=== PATIENT | female | born 1945 | race Hispanic/Latino ===

== ENCOUNTER → 2017-06-14 | Outpatient (CLI) | payer OTHER ==
[~2017-06-14] VITALS: Ht 154.9 cm; Wt 71.2 kg
[~2017-06-14] MED LIST: REGADENOSON 0.4 MG/5 ML PF SYG IVP SCH
== END | disposition home or self-care (01) ==
LOC: SHCH 12:21
PROVIDERS: ATTEND Internal Medicine Cardiovascular Disease
DX: I10 Essential (primary) hypertension (principal); E78.5 Hyperlipidemia, unspecified
CPT/HCPCS: 78452; 93017; 96374; A9500 ×2; J2785

== ENCOUNTER → 2017-07-13 | Outpatient (CLI) | payer OTHER ==
[2017-07-13 10:22] LABS: AMYLASE 38 U/L (25-115); LIPASE 78 U/L (114-286)
== END | disposition home or self-care (01) ==
LOC: RAH 07:11
PROVIDERS: ATTEND Internal Medicine Gastroenterology
DX: K21.9 Gastro-esophageal reflux disease without esophagitis (principal); R11.0 Nausea
CPT/HCPCS: 36415; 74240; 76700; 82150; 83690

== ENCOUNTER → 2018-02-13 | Outpatient (CLI) | payer OTHER | END | disposition home or self-care (01) | LOC: SHCH 08:51 | PROVIDERS: ATTEND Internal Medicine Cardiovascular Disease | DX: I87.2 Venous insufficiency (chronic) (peripheral) (principal) | CPT/HCPCS: 93970 ==

== ENCOUNTER → 2018-04-29 | Outpatient (CLI) | payer OTHER | END | disposition home or self-care (01) | LOC: RAH 16:46 | PROVIDERS: ATTEND Internal Medicine Gastroenterology | DX: K59.04 Chronic idiopathic constipation (principal) | CPT/HCPCS: 74018 ==

== ENCOUNTER → 2018-05-09 | Outpatient (CLI) | payer OTHER | END | disposition home or self-care (01) | LOC: RAH 07:15 | PROVIDERS: ATTEND Family Medicine | DX: R10.9 Unspecified abdominal pain (principal) | CPT/HCPCS: 76700 ==

== ENCOUNTER → 2018-05-27 | Outpatient (CLI) | payer OTHER | END | disposition home or self-care (01) | LOC: SHCH 13:01 | PROVIDERS: ATTEND Internal Medicine Cardiovascular Disease | DX: Z09 Encounter for follow-up examination after completed treatment for conditions other than malignant neoplasm (principal) | CPT/HCPCS: 93971 ==

== ENCOUNTER → 2018-05-30 | Outpatient (CLI) | payer OTHER ==
[~2018-05-30] MED LIST changes: +IOHEXOL 350 MG/ML 100ML INFUS..BTL IV ONE; -REGADENOSON 0.4 MG/5 ML PF SYG IVP SCH
== END | disposition home or self-care (01) ==
LOC: RAH 09:47
PROVIDERS: ATTEND Internal Medicine Gastroenterology
DX: R10.84 Generalized abdominal pain (principal)
CPT/HCPCS: 74178; Q9967

== ENCOUNTER 2018-05-31 11:58 | Emergency (ER) | payer OTHER ==
[2018-05-31] MEDS ORDERED: OCTYL 2-CYANOACRYLATE 1 EACH TP ONE (12:12)
== END 2018-05-31 12:59 | disposition home or self-care (01) ==
LOC: EDH 11:58
DX: S82.091A Other fracture of right patella, initial encounter for closed fracture (principal); S60.519A Abrasion of unspecified hand, initial encounter; F41.9 Anxiety disorder, unspecified; I10 Essential (primary) hypertension; Z88.2 Allergy status to sulfonamides; Z88.1 Allergy status to other antibiotic agents; Z88.8 Allergy status to other drugs, medicaments and biological substances; W01.0XXA Fall on same level from slipping, tripping and stumbling without subsequent striking against object, initial encounter; Y93.01 Activity, walking, marching and hiking; Y92.89 Other specified places as the place of occurrence of the external cause; Y99.8 Other external cause status
CPT/HCPCS: 12001; 29505; 73562

== ENCOUNTER 2018-06-02 16:55 | Emergency (ER) | payer OTHER ==
[2018-06-02 17:21] LABS: APPEARANCE,URINE Clear (CLEAR); BILIRUBIN,URINE Negative (NEGATIVE); GLUCOSE, URINE (UA) Negative (NEGATIVE); KETONES,URINE Negative (NEGATIVE); LEUKOCYTE ESTERASE ,URINE Trace (NEGATIVE); NITRATE,URINE Positive (NEGATIVE); OCCULT BLOOD,URINE Negative (NEGATIVE); PROTEIN,URINE Negative (NEGATIVE)
[2018-06-02 17:32] LABS: BACTERIA,URINE Few /HPF (None Seen); RBC,URINE None Seen /HPF (0-1); WBC,URINE 0-1 /HPF (0-1)
[2018-06-02 17:33] LABS: COLOR,URINE Dark Yellow (YELLOW); SQUAMOUS EPITHELIAL CELL,UR 0-2 /HPF (0-2)
[2018-06-02 17:47] LABS: BASOPHILS % (AUTO) 1.1 % (0.0-5.0); EOSINOPHILS % (AUTO) 0.7 % (0.0-8.0); HEMATOCRIT 39.6 % (36-48); LYMPHOCYTES % (AUTO) 25.7 % (21.0-51.0); MEAN CORPUSCULAR HEMOGLOBIN 31.7 pg (27.0-33.0); MEAN CORPUSCULAR HGB CONC 33.6 g/dL (32.0-36.0); MEAN CORPUSCULAR VOLUME 94.3 fL (79-99); MONOCYTES % (AUTO) 4.9 % (3.0-13.0); NEUTROPHILS % (AUTO) 67.6 % (40.0-77.0); PLATELET COUNT (AUTO) 321 K/uL (130-400); RED CELL DISTRIBUTION WIDTH 12.7 % (11.0-15.5); WHITE BLOOD COUNT (AUTO) 10.7 K/uL (4.8-10.8)
[2018-06-02 18:03] LABS: CREATININE 0.8 mg/dL (0.5-1.5); POTASSIUM 4.1 mmol/L (3.5-5.1)
[2018-06-02 18:08] LABS: ALBUMIN 3.7 g/dL (3.5-5.0); BILIRUBIN,TOTAL 0.7 mg/dL (0.2-1.0); TOTAL PROTEIN, SERUM 7.2 g/dL (6.0-8.3)
== END 2018-06-02 18:33 | disposition home or self-care (01) ==
LOC: EDH 16:55
DX: N39.0 Urinary tract infection, site not specified (principal); I10 Essential (primary) hypertension; F41.9 Anxiety disorder, unspecified; Z98.890 Other specified postprocedural states; Z88.2 Allergy status to sulfonamides; Z88.1 Allergy status to other antibiotic agents; Z88.8 Allergy status to other drugs, medicaments and biological substances
CPT/HCPCS: 36415; 80053; 81001; 85025; 87088

== ENCOUNTER → 2018-07-16 | Outpatient (CLI) | payer OTHER ==
[~2018-07-16] MED LIST changes: -IOHEXOL 350 MG/ML 100ML INFUS..BTL IV ONE; +REGADENOSON 0.4 MG/5 ML PF SYG IVP ONE; +REGADENOSON 0.4 MG/5 ML PF SYG IVP SCH
== END | disposition home or self-care (01) ==
LOC: SHCH 08:40
PROVIDERS: ATTEND Internal Medicine Cardiovascular Disease
DX: I10 Essential (primary) hypertension (principal)
CPT/HCPCS: 78452; 93017; 96374; A9500 ×2; J2785

== ENCOUNTER → 2018-07-25 | Outpatient (CLI) | payer OTHER | END | disposition home or self-care (01) | LOC: SHCH 15:57 | PROVIDERS: ATTEND Internal Medicine Cardiovascular Disease | DX: I10 Essential (primary) hypertension (principal) | CPT/HCPCS: 93306 ==

== ENCOUNTER 2018-07-31 18:38 | Emergency (ER) | payer OTHER ==
[2018-07-31] MEDS ORDERED: LIDOCAINE 5% TOPICAL PATCH TP ONE (19:37)
[2018-07-31] MEDS ORDERED: KETOROLAC TROMETHAMINE 30MG/ML ONE (19:37)
== END 2018-07-31 20:45 | disposition home or self-care (01) ==
LOC: EDH 18:38
DX: S39.012A Strain of muscle, fascia and tendon of lower back, initial encounter (principal); S29.011A Strain of muscle and tendon of front wall of thorax, initial encounter; M62.838 Other muscle spasm; I10 Essential (primary) hypertension; F41.9 Anxiety disorder, unspecified; E11.9 Type 2 diabetes mellitus without complications; E78.5 Hyperlipidemia, unspecified; K21.9 Gastro-esophageal reflux disease without esophagitis; Z88.1 Allergy status to other antibiotic agents; Z88.2 Allergy status to sulfonamides; Z88.8 Allergy status to other drugs, medicaments and biological substances; V49.69XA Unspecified car occupant injured in collision with other motor vehicles in traffic accident, initial encounter; Y93.89 Activity, other specified; Y92.89 Other specified places as the place of occurrence of the external cause; Y99.8 Other external cause status
CPT/HCPCS: 71046; 72100; 93005; 96372; 99284; J1885

== ENCOUNTER 2018-09-19 12:41 | Emergency (ER) | payer OTHER ==
[2018-09-19 13:03] LABS: APPEARANCE,URINE Clear (CLEAR); BILIRUBIN,URINE Negative (NEGATIVE); COLOR,URINE Dark Yellow (YELLOW); GLUCOSE, URINE (UA) Negative (NEGATIVE); KETONES,URINE Negative (NEGATIVE); LEUKOCYTE ESTERASE ,URINE Negative (NEGATIVE); NITRATE,URINE Positive (NEGATIVE); OCCULT BLOOD,URINE Negative (NEGATIVE); PROTEIN,URINE Negative (NEGATIVE)
[2018-09-19 13:18] LABS: BACTERIA,URINE Few /HPF (None Seen); RBC,URINE 0-1 /HPF (0-1); WBC,URINE 0-1 /HPF (0-1)
[2018-09-19 14:44] LABS: BASOPHILS % (AUTO) 0.5 % (0.0-5.0); EOSINOPHILS % (AUTO) 0.8 % (0.0-8.0); HEMATOCRIT 42.6 % (36-48); LYMPHOCYTES % (AUTO) 27.2 % (21.0-51.0); MEAN CORPUSCULAR HEMOGLOBIN 31.7 pg (27.0-33.0); MEAN CORPUSCULAR HGB CONC 33.9 g/dL (32.0-36.0); MEAN CORPUSCULAR VOLUME 93.7 fL (79-99); MONOCYTES % (AUTO) 5.3 % (3.0-13.0); NEUTROPHILS % (AUTO) 66.2 % (40.0-77.0); PLATELET COUNT (AUTO) 259 K/uL (130-400); RED BLOOD CELL COUNT(AUTO) 4.54 MIL/uL (4.00-5.50); RED CELL DISTRIBUTION WIDTH 12.8 % (11.0-15.5); WHITE BLOOD COUNT (AUTO) 8.6 K/uL (4.8-10.8)
[2018-09-19 14:48] LABS: CREATININE 0.8 mg/dL (0.5-1.5); POTASSIUM 3.5 mmol/L (3.5-5.1)
[2018-09-19 14:53] LABS: ALBUMIN 3.9 g/dL (3.5-5.0); BILIRUBIN,TOTAL 0.8 mg/dL (0.2-1.0); TOTAL PROTEIN, SERUM 7.5 g/dL (6.0-8.3)
== END 2018-09-19 16:25 | disposition home or self-care (01) ==
LOC: EDH 12:41
DX: N39.0 Urinary tract infection, site not specified (principal); K21.9 Gastro-esophageal reflux disease without esophagitis; I10 Essential (primary) hypertension; F41.9 Anxiety disorder, unspecified; Z88.1 Allergy status to other antibiotic agents; Z88.2 Allergy status to sulfonamides; Z88.8 Allergy status to other drugs, medicaments and biological substances; Z90.710 Acquired absence of both cervix and uterus
CPT/HCPCS: 36415; 74176; 80053; 81001; 83690; 85025

== ENCOUNTER → 2019-01-16 | Outpatient (CLI) | payer OTHER | END | disposition home or self-care (01) | LOC: RAH 07:27 | PROVIDERS: ATTEND Family Medicine | DX: K76.0 Fatty (change of) liver, not elsewhere classified (principal); Z90.710 Acquired absence of both cervix and uterus | CPT/HCPCS: 76700; 76856 ==

== ENCOUNTER 2019-03-10 07:58 | Emergency (ER) | payer OTHER ==
[2019-03-10] MEDS ORDERED: SODIUM CHLORIDE 0.9% 500ML 500 ML IV ONE (08:39)
[2019-03-10 08:41] LABS: BASOPHILS % (AUTO) 0.6 % (0.0-5.0); EOSINOPHILS % (AUTO) 0.5 % (0.0-8.0); HEMATOCRIT 39.2 % (36-48); LYMPHOCYTES % (AUTO) 19.1 % (21.0-51.0); MEAN CORPUSCULAR HGB CONC 34.3 g/dL (32.0-36.0); MEAN CORPUSCULAR VOLUME 93.2 fL (79-99); MONOCYTES % (AUTO) 6.8 % (3.0-13.0); PLATELET COUNT (AUTO) 290 K/uL (130-400); RED BLOOD CELL COUNT(AUTO) 4.21 MIL/uL (4.00-5.50); RED CELL DISTRIBUTION WIDTH 13.1 % (11.0-15.5); WHITE BLOOD COUNT (AUTO) 8.5 K/uL (4.8-10.8)
[2019-03-10] MEDS ORDERED: ONDANSETRON HCL 4 MG/2 ML VIAL ONE (08:42)
[2019-03-10 08:50] LABS: CREATININE 0.8 mg/dL (0.5-1.5); POTASSIUM 3.5 mmol/L (3.5-5.1)
[2019-03-10 08:53] LABS: INR 0.98 (0.85-1.15); PARTIAL THROMBOPLASTIN TIME 26.2 SEC (26.3-35.5); PROTHROMBIN TIME 10.3 SEC (9.6-11.6)
[2019-03-10 08:55] LABS: ALBUMIN 3.8 g/dL (3.5-5.0); BILIRUBIN,TOTAL 1.2 mg/dL (0.2-1.0); TOTAL PROTEIN, SERUM 6.8 g/dL (6.0-8.3)
[2019-03-10 09:31] LABS: B-TYPE NATRIURETIC PEPTIDE 18 pg/mL (0-100)
[2019-03-10 10:17] LABS: APPEARANCE,URINE Cloudy (CLEAR); BILIRUBIN,URINE Negative (NEGATIVE); COLOR,URINE Yellow (YELLOW); GLUCOSE, URINE (UA) Negative (NEGATIVE); KETONES,URINE Negative (NEGATIVE); LEUKOCYTE ESTERASE ,URINE Negative (NEGATIVE); NITRATE,URINE Negative (NEGATIVE); OCCULT BLOOD,URINE Negative (NEGATIVE); PROTEIN,URINE Negative (NEGATIVE); UROBILINOGEN,URINE 0.2 mg/dL (0.2-1.0)
[2019-03-10 10:35] LABS: BACTERIA,URINE Few /HPF (None Seen); RBC,URINE 0-1 /HPF (0-1); SQUAMOUS EPITHELIAL CELL,UR Few /HPF (0-2); WBC,URINE 0-1 /HPF (0-1)
== END 2019-03-10 12:06 | disposition home or self-care (01) ==
LOC: EDH 07:58
DX: R07.89 Other chest pain (principal); R53.1 Weakness; R11.2 Nausea with vomiting, unspecified; R10.13 Epigastric pain; F41.9 Anxiety disorder, unspecified; I10 Essential (primary) hypertension; K21.9 Gastro-esophageal reflux disease without esophagitis; Z90.710 Acquired absence of both cervix and uterus; Z88.8 Allergy status to other drugs, medicaments and biological substances; Z88.1 Allergy status to other antibiotic agents
CPT/HCPCS: 36415; 71045; 80053; 81001; 82550; 83880; 84484; 85025; 85610; 85730; 87804 ×2; 93005; 96361; 96374; 99284; J2405; J7040

== ENCOUNTER → 2019-04-22 | Outpatient (CLI) | payer OTHER ==
[~2019-04-22] VITALS: Ht 152.4 cm; Wt 71.7 kg
[~2019-04-22] MED LIST changes: +ASPI-555 PO; +ESOM40CA PO; +MIRT30TA6 PO; -REGADENOSON 0.4 MG/5 ML PF SYG IVP ONE; -REGADENOSON 0.4 MG/5 ML PF SYG IVP SCH
[2019-04-22 11:46] LABS: BASOPHILS % (AUTO) 0.5 % (0.0-5.0); EOSINOPHILS % (AUTO) 0.9 % (0.0-8.0); HEMATOCRIT 40.8 % (36-48); LYMPHOCYTES % (AUTO) 20.2 % (21.0-51.0); MEAN CORPUSCULAR HEMOGLOBIN 31.5 pg (27.0-33.0); MEAN CORPUSCULAR HGB CONC 33.3 g/dL (32.0-36.0); MEAN CORPUSCULAR VOLUME 94.4 fL (79-99); MONOCYTES % (AUTO) 5.6 % (3.0-13.0); NEUTROPHILS % (AUTO) 72.1 % (40.0-77.0); PLATELET COUNT (AUTO) 311 K/uL (130-400); RED BLOOD CELL COUNT(AUTO) 4.32 MIL/uL (4.00-5.50); RED CELL DISTRIBUTION WIDTH 13.1 % (11.0-15.5); WHITE BLOOD COUNT (AUTO) 12.5 K/uL (4.8-10.8)
[2019-04-22 11:52] LABS: CREATININE 0.8 mg/dL (0.5-1.5); POTASSIUM 3.9 mmol/L (3.5-5.1)
[2019-04-22 12:06] VITALS: BP 156/79
--- NOTE | 2019-04-22 15:22 | NUR ---
ABNORMAL LABS CALLED DR. MCCORMICK'S OFFICE, REPORTED PT'S WBC IS 12.5. NO FURTHER ORDERS PER DR. MCCORMICK, MAY PROCEED WITH PLANNED PROCEDURE.
== END | disposition home or self-care (01) ==
LOC: DAH 10:00 → EDSTATUS 04-23 13:00
PROVIDERS: ATTEND Obstetrics & Gynecology
DX: N39.3 Stress incontinence (female) (male) (principal)
CPT/HCPCS: 36415; 80048; 85025; 93005

== ENCOUNTER → 2020-01-05 | Outpatient (CLI) | payer OTHER ==
[~2020-01-05] MED LIST changes: -ASPI-555 PO; +ASPI-556 PO
== END | disposition home or self-care (01) ==
LOC: OIH 15:56
PROVIDERS: ATTEND Internal Medicine Gastroenterology
DX: K59.04 Chronic idiopathic constipation (principal)
CPT/HCPCS: 74018

== ENCOUNTER → 2020-04-06 | Outpatient (CLI) | payer MEDICARE, OTHER ==
[~2020-04-06] MED LIST changes: +IOHEXOL-350 50ML VIAL IV ONE
== END | disposition home or self-care (01) ==
LOC: RAH 08:46
PROVIDERS: ATTEND Internal Medicine Gastroenterology
DX: R10.84 Generalized abdominal pain (principal)
CPT/HCPCS: 74178; Q9967

== ENCOUNTER 2020-09-16 13:54 | Emergency (ER) | payer MEDICARE ==
[~2020-09-16] VITALS: Ht 154.9 cm; Wt 68.9 kg
[~2020-09-16 13:54] MED LIST changes: -IOHEXOL-350 50ML VIAL IV ONE; +MIRT-93 PO; -MIRT30TA6 PO
[2020-09-16 13:57] VITALS: BP 146/64
[2020-09-16] MEDS ORDERED: FAMOTIDINE 20MG TAB PO ONE (14:45)
[2020-09-16] MEDS ORDERED: LACTATED RINGERS 1000ML 1,000 ML IV ONE (14:45)
[2020-09-16] MEDS ORDERED: ONDANSETRON 4MG INJ IVP ONE (14:45)
[2020-09-16] MEDS ORDERED: KETOROLAC 30MG VIAL (30MG/ML) ONE (14:57)
[2020-09-16 15:01] VITALS: BP 146/64
[2020-09-16 15:08] LABS: BASOPHILS % (AUTO) 0.5 % (0.0-5.0); EOSINOPHILS % (AUTO) 1.2 % (0.0-8.0); HEMATOCRIT 40.2 % (36-48); LYMPHOCYTES % (AUTO) 24.4 % (21.0-51.0); MEAN CORPUSCULAR HEMOGLOBIN 30.5 pg (27.0-33.0); MEAN CORPUSCULAR HGB CONC 32.6 g/dL (32.0-36.0); MEAN CORPUSCULAR VOLUME 93.5 fL (79-99); MONOCYTES % (AUTO) 5.7 % (3.0-13.0); NEUTROPHILS % (AUTO) 67.7 % (40.0-77.0); PLATELET COUNT (AUTO) 305 K/uL (130-400); RED CELL DISTRIBUTION WIDTH 12.6 % (11.0-15.5); WHITE BLOOD COUNT (AUTO) 8.6 K/uL (4.8-10.8)
[2020-09-16 15:19] LABS: CARBON DIOXIDE 33 mmol/L (21-32); CHLORIDE 103 mmol/L (101-111); CREATININE 0.8 mg/dL (0.5-1.5); GLOMERULAR FILTR. RATE CALC 75 mL/min (>60); GLUCOSE,RANDOM 165 mg/dL (70-105); POTASSIUM 3.7 mmol/L (3.5-5.1); SODIUM SERUM 144 mmol/L (136-145); UREA NITROGEN, BLOOD 21 mg/dL (7-18)
[2020-09-16 15:20] LABS: INR 0.98 (0.85-1.15); PROTHROMBIN TIME 10.7 SEC (9.6-11.6)
[2020-09-16] MEDS ORDERED: IOHEXOL-350 75 ML VIAL IV ONE (15:23)
[2020-09-16 15:26] LABS: APPEARANCE,URINE Clear (CLEAR); BILIRUBIN,URINE Negative (NEGATIVE); COLOR,URINE Yellow (YELLOW); GLUCOSE, URINE (UA) Negative (NEGATIVE); KETONES,URINE Negative (NEGATIVE); LEUKOCYTE ESTERASE ,URINE Negative (NEGATIVE); NITRATE,URINE Negative (NEGATIVE); OCCULT BLOOD,URINE Negative (NEGATIVE); PROTEIN,URINE Negative (NEGATIVE); UROBILINOGEN,URINE 0.2 mg/dL (0.2-1.0)
[2020-09-16 15:29] LABS: B-TYPE NATRIURETIC PEPTIDE 45 pg/mL (0-100)
[2020-09-16 15:30] LABS: ALANINE AMINOTRANSFERASE 26 U/L (12-78); ALBUMIN 3.8 g/dL (3.5-5.0); AMYLASE 46 U/L (25-115); ASPARTATE AMINOTRANSFERASE 13 U/L (10-37); BILIRUBIN,TOTAL 0.4 mg/dL (0.2-1.0); CREATINE KINASE, TOTAL 65 U/L (21-232); LIPASE 57 U/L (114-286); MYOGLOBIN 38 ng/mL (10-92); TOTAL PROTEIN, SERUM 7.5 g/dL (6.0-8.3); TROPONIN I < 0.04 ng/mL (0.00-0.06)
[2020-09-16] MEDS: KETOROLAC 30MG VIAL (30MG/ML) ONE ×2 (15:57→16:02)
[2020-09-16] MEDS ORDERED: METRONIDAZOLE 500MG/100ML BAG 100 ML ONE (16:35)
[2020-09-16] MEDS ORDERED: ZOSYN 3.375GM+NS 50ML 50 ML IV ONE (16:35)
[2020-09-16] MEDS ORDERED: 0.9% NACL 50ML 50 ML IV ONE (16:38)
[2020-09-16] MEDS ORDERED: HYDROMORPHONE 1 MG INJ ONE (16:51)
[2020-09-16 16:57] VITALS: BP 138/62
[2020-09-16 18:08] VITALS: BP 138/62
== END 2020-09-16 18:17 | disposition home or self-care (01) ==
LOC: EDH 13:54
DX: K76.89 Other specified diseases of liver (principal); F32.9 Major depressive disorder, single episode, unspecified; F41.9 Anxiety disorder, unspecified; E86.0 Dehydration; R10.12 Left upper quadrant pain; Z88.0 Allergy status to penicillin; Z88.2 Allergy status to sulfonamides; Z88.8 Allergy status to other drugs, medicaments and biological substances; Z79.82 Long term (current) use of aspirin; Z79.899 Other long term (current) drug therapy
CPT/HCPCS: 36415; 80053; 81003; 82150; 82550; 83690; 83874; 83880; 84484; 85025; 85610; 93005; 96361; 96374; 96375; 99285; J1170; J1885; J2405; J2543; J3490; J7120; 74177; Q9967

== ENCOUNTER → 2021-03-24 | Outpatient (CLI) | payer MEDICARE ==
[~2021-03-24] MED LIST changes: +IOHEXOL-350 50ML VIAL IV ONE
== END | disposition home or self-care (01) ==
LOC: RAH 08:29
PROVIDERS: ATTEND Internal Medicine Gastroenterology
DX: R10.12 Left upper quadrant pain (principal); R93.3 Abnormal findings on diagnostic imaging of other parts of digestive tract; Q44.6 Cystic disease of liver; M47.815 Spondylosis without myelopathy or radiculopathy, thoracolumbar region
CPT/HCPCS: 74178; Q9967

== ENCOUNTER → 2021-05-02 | Outpatient (CLI) | payer MEDICARE ==
[~2021-05-02] MED LIST changes: -IOHEXOL-350 50ML VIAL IV ONE
== END | disposition home or self-care (01) ==
LOC: RAH 10:25
PROVIDERS: ATTEND Internal Medicine Gastroenterology
DX: K30 Functional dyspepsia (principal)
CPT/HCPCS: 78264; A9541

== ENCOUNTER 2021-05-15 09:40 | Emergency (ER) | payer MEDICARE ==
[~2021-05-15] VITALS: Ht 154.9 cm; Wt 52.2 kg
[2021-05-15 10:45] LABS: APPEARANCE,URINE Clear (CLEAR); BILIRUBIN,URINE Small (NEGATIVE); COLOR,URINE Dark Yellow (YELLOW); GLUCOSE, URINE (UA) >=1000 mg/dL (NEGATIVE); KETONES,URINE Trace mg/dL (NEGATIVE); LEUKOCYTE ESTERASE ,URINE Negative (NEGATIVE); NITRATE,URINE Positive (NEGATIVE); OCCULT BLOOD,URINE Negative (NEGATIVE); PH,URINE 5.5 (5.0-8.0); PROTEIN,URINE Negative (NEGATIVE)
[2021-05-15] MEDS ORDERED: KETOROLAC 15MG/ML VIAL (15MG/ML) IM SCH (10:52)
[2021-05-15] MEDS ORDERED: PHARMACY COMMUNICATION MISC SCH (11:00)
[2021-05-15] MEDS ORDERED: CEPHALEXIN 500 MG CAPSULE PO SCH (11:00)
[2021-05-15 11:26] LABS: BACTERIA,URINE Few /HPF (None Seen); RBC,URINE 0-1 /HPF (0-1); SQUAMOUS EPITHELIAL CELL,UR 30-50 /HPF (0-2)
[2021-05-15] MEDS ORDERED: ACET1TAB25 PO (11:27)
[2021-05-15] MEDS ORDERED: CEPH500B PO (11:27)
[2021-05-15 11:54] VITALS: BP 128/69
== END 2021-05-15 11:56 | disposition home or self-care (01) ==
LOC: EDH 09:40
DX: M54.32 Sciatica, left side (principal); N39.0 Urinary tract infection, site not specified; I11.0 Hypertensive heart disease with heart failure; E11.9 Type 2 diabetes mellitus without complications; Z90.710 Acquired absence of both cervix and uterus; Z98.890 Other specified postprocedural states; Z79.82 Long term (current) use of aspirin; Z79.899 Other long term (current) drug therapy; Z88.1 Allergy status to other antibiotic agents; Z88.2 Allergy status to sulfonamides; Z88.8 Allergy status to other drugs, medicaments and biological substances
CPT/HCPCS: 72100; 81001; 87088; 96372; 99284; J1885

== ENCOUNTER 2021-05-22 09:48 | Observation (INO) | payer MEDICARE ==
[~2021-05-22] VITALS: Ht 149.9 cm; Wt 66.7 kg
[~2021-05-22 09:48] MED LIST changes: +ACET1TAB25 PO; +CEPH500B PO
[2021-05-22] MEDS ORDERED: HYDROCODONE/ACETAMINOPHEN 5/325 MG TAB PO SCH (11:30)
[2021-05-22 13:31] LABS: BASOPHILS % (AUTO) 0.3 % (0.0-5.0); EOSINOPHILS % (AUTO) 0.8 % (0.0-8.0); HEMATOCRIT 42.4 % (36-48); LYMPHOCYTES % (AUTO) 27.7 % (21.0-51.0); MEAN CORPUSCULAR HEMOGLOBIN 30.7 pg (27.0-33.0); MEAN CORPUSCULAR HGB CONC 33.3 g/dL (32.0-36.0); MEAN CORPUSCULAR VOLUME 92.2 fL (79-99); MONOCYTES % (AUTO) 5.8 % (3.0-13.0); NEUTROPHILS % (AUTO) 65.2 % (40.0-77.0); PLATELET COUNT (AUTO) 302 K/uL (130-400); WHITE BLOOD COUNT (AUTO) 9.4 K/uL (4.8-10.8)
[2021-05-22 13:43] LABS: CREATININE 0.8 mg/dL (0.5-1.5); POTASSIUM 3.2 mmol/L (3.5-5.1)
[2021-05-22 13:47] LABS: BILIRUBIN,TOTAL 0.7 mg/dL (0.2-1.0); TOTAL PROTEIN, SERUM 7.6 g/dL (6.0-8.3)
[2021-05-22] MEDS ORDERED: ALBUTEROL 0.083% 2.5 MG/3 ML INH IH PRN (16:30)
[2021-05-22] MEDS ORDERED: ONDANSETRON 4MG INJ IVP PRN (16:30)
[2021-05-22] MEDS ORDERED: HYDRALAZINE 20MG/ML VIAL IV PRN (16:30)
[2021-05-22] MEDS ORDERED: LABETALOL 20MG SYG IV PRN (16:30)
[2021-05-22] MEDS ORDERED: LORA-868 PO (17:14)
[2021-05-22] MEDS ORDERED: LACT10SO5 PO (17:14)
[2021-05-22] MEDS ORDERED: NABU-141 PO (17:14)
[2021-05-22] MEDS ORDERED: ALPR1TAB7 PO (17:14)
[2021-05-22] MEDS ORDERED: FAMO40TA7 PO (17:14)
[2021-05-22] MEDS ORDERED: HYDR25TA PO (17:14)
[2021-05-22] MEDS ORDERED: MIRT45TA83 PO (17:14)
[2021-05-22] MEDS ORDERED: DICY20TA3 PO (17:14)
[2021-05-22] MEDS: INSULIN HUMULIN R 100 UNIT/ML 3ML SQ SCH ×2 (17:17→20:58)
[2021-05-22] MEDS: LACTULOSE 20 GM/30 ML UDCUP PO SCH (20:41)
[2021-05-22 21:45] VITALS: BP 122/71
[2021-05-22] MEDS ORDERED: INSU100I24 SQ (22:18)
[2021-05-22] MEDS ORDERED: ONDA4TAB10 PO (22:22)
[2021-05-22] MEDS ORDERED: HYDROMORPHONE 0.5 MG SYG (0.5MG/0.5ML) ONE (22:39)
[2021-05-22] MEDS ORDERED: **HM**(Nabumetone 500 MG PO PRN (23:00)
[2021-05-22] MEDS ORDERED: HYDROMORPHONE 0.5 MG SYG (0.5MG/0.5ML) IVP ONE (23:00)
[2021-05-22] MEDS ORDERED: DICYCLOMINE HCL 20 MG TAB PO PRN (23:00)
[2021-05-22] MEDS ORDERED: ALPRAZOLAM 1 MG TAB PO PRN (23:00)
[2021-05-22 23:30] VITALS: BP 114/69
[2021-05-23] MEDS: HYDROCODONE/ACETAMINOPHEN 5/325 MG TAB PO PRN ×4 (00:44→18:36)
[2021-05-23 03:20] VITALS: BP 112/63
[2021-05-23] MEDS ORDERED: HYDROMORPHONE 1 MG INJ ONE (05:17)
[2021-05-23 05:25] LABS: BASOPHILS % (AUTO) 0.7 % (0.0-5.0); EOSINOPHILS % (AUTO) 2.5 % (0.0-8.0); HEMATOCRIT 39.3 % (36-48); LYMPHOCYTES % (AUTO) 42.4 % (21.0-51.0); MEAN CORPUSCULAR HEMOGLOBIN 30.9 pg (27.0-33.0); MEAN CORPUSCULAR HGB CONC 32.6 g/dL (32.0-36.0); MEAN CORPUSCULAR VOLUME 94.9 fL (79-99); MONOCYTES % (AUTO) 6.9 % (3.0-13.0); NEUTROPHILS % (AUTO) 47.3 % (40.0-77.0); PLATELET COUNT (AUTO) 270 K/uL (130-400); RED BLOOD CELL COUNT(AUTO) 4.14 MIL/uL (4.00-5.50); RED CELL DISTRIBUTION WIDTH 12.1 % (11.0-15.5); WHITE BLOOD COUNT (AUTO) 8.9 K/uL (4.8-10.8)
[2021-05-23] MEDS ORDERED: HYDROMORPHONE 1 MG INJ IVP ONE (05:30)
[2021-05-23 05:39] LABS: CREATININE 0.9 mg/dL (0.5-1.5); MAGNESIUM 1.9 mg/dL (1.80-2.40); PHOSPHORUS 3.9 mg/dL (2.5-4.9); POTASSIUM 3.2 mmol/L (3.5-5.1)
[2021-05-23] MEDS: INSULIN HUMULIN R 100 UNIT/ML 3ML SQ SCH ×4 (06:32→20:08)
[2021-05-23] MEDS ORDERED: POTASSIUM CHLORIDE 10% ELIXIR 20 MEQ/15 ML UDCUP PO PRN (07:00)
[2021-05-23] MEDS ORDERED: POTASSIUM CHLORIDE 20MEQ/100ML 100 ML IV PRN (07:00)
[2021-05-23 08:00] VITALS: BP 113/65
[2021-05-23] MEDS ORDERED: ASPIRIN 81 MG EC TAB PO SCH (09:00)
[2021-05-23] MEDS: HYDROCHLOROTHIAZIDE 25 MG TABLET PO SCH (09:00)
[2021-05-23] MEDS: LORATADINE/PSEUDOEPHED 5/120 MG 1 EACH TAB.SR.12H PO SCH ×2 (09:00→19:58)
[2021-05-23] MEDS ORDERED: HYDROCHLOROTHIAZIDE 25 MG TABLET PO SCH (09:00)
[2021-05-23] MEDS ORDERED: ENOXAPARIN SODIUM 30 MG/0.3 ML SQ SCH (09:00)
[2021-05-23] MEDS: LACTULOSE 20 GM/30 ML UDCUP PO SCH ×2 (09:20→19:59)
[2021-05-23] MEDS: PANTOPRAZOLE 40 MG TAB DR PO SCH (09:20)
[2021-05-23 12:00] VITALS: BP 111/76
[2021-05-23] MEDS: KCL 20 MEQ ERTAB PO PRN ×3 (13:50→18:35)
[2021-05-23 16:00] VITALS: BP 134/79
[2021-05-23 20:00] VITALS: BP 121/73
[2021-05-23] MEDS: MIRTAZAPINE 15 MG TABLET PO SCH (21:00)
[2021-05-24] VITALS (7 sets, daily range): BP systolic 117–139; BP diastolic 68–78
[2021-05-24] MEDS ORDERED: SOLU-MEDROL 125MG VIAL IVP ONE (00:30)
[2021-05-24] MEDS: HYDROCODONE/ACETAMINOPHEN 5/325 MG TAB PO PRN ×4 (03:42→22:43)
[2021-05-24 05:16] LABS: RED BLOOD CELL COUNT(AUTO) 4.31 MIL/uL (4.00-5.50); WHITE BLOOD COUNT (AUTO) 8.3 K/uL (4.8-10.8)
[2021-05-24 05:17] LABS: BASOPHILS % (AUTO) 0.4 % (0.0-5.0); EOSINOPHILS % (AUTO) 0.2 % (0.0-8.0); HEMATOCRIT 40.1 % (36-48); LYMPHOCYTES % (AUTO) 9.2 % (21.0-51.0); MEAN CORPUSCULAR HEMOGLOBIN 30.2 pg (27.0-33.0); MEAN CORPUSCULAR HGB CONC 32.4 g/dL (32.0-36.0); MONOCYTES % (AUTO) 1.4 % (3.0-13.0); NEUTROPHILS % (AUTO) 88.3 % (40.0-77.0); PLATELET COUNT (AUTO) 239 K/uL (130-400); RED CELL DISTRIBUTION WIDTH 11.9 % (11.0-15.5)
[2021-05-24 05:32] LABS: MAGNESIUM 1.8 mg/dL (1.80-2.40); POTASSIUM 4.2 mmol/L (3.5-5.1)
[2021-05-24] MEDS: CYCLOBENZAPRINE HCL 10 MG TABLET PO PRN ×2 (05:48→12:19)
[2021-05-24] MEDS ORDERED: MAGNESIUM 2GM PREMIX 50ML 50 ML IV PRN (06:00)
[2021-05-24] MEDS: INSULIN HUMULIN R 100 UNIT/ML 3ML SQ SCH ×4 (06:12→20:02)
[2021-05-24] MEDS: LORATADINE/PSEUDOEPHED 5/120 MG 1 EACH TAB.SR.12H PO SCH ×2 (09:00→19:45)
[2021-05-24] MEDS: LACTULOSE 20 GM/30 ML UDCUP PO SCH ×2 (09:00→20:08)
[2021-05-24] MEDS: HYDROCHLOROTHIAZIDE 25 MG TABLET PO SCH (09:00)
[2021-05-24] MEDS: PREDNISONE 20 MG TABLET PO SCH ×2 (09:35→19:51)
[2021-05-24] MEDS: PANTOPRAZOLE 40 MG TAB DR PO SCH (09:35)
[2021-05-24] MEDS: MIRTAZAPINE 15 MG TABLET PO SCH (19:45)
[2021-05-24] MEDS ORDERED: CYCLOBENZAPRINE HCL 10 MG TABLET ONE (19:49)
[2021-05-24] MEDS ORDERED: CYCLOBENZAPRINE HCL 10 MG TABLET PO ONE (21:00)
[2021-05-24 21:34] LABS: APPEARANCE,URINE CLEAR (CLEAR); BILIRUBIN,URINE NEGATIVE (NEGATIVE); COLOR,URINE YELLOW (YELLOW); GLUCOSE, URINE (UA) >=1000 mg/dL (NEGATIVE); KETONES,URINE NEGATIVE (NEGATIVE); LEUKOCYTE ESTERASE ,URINE NEGATIVE (NEGATIVE); NITRATE,URINE NEGATIVE (NEGATIVE); OCCULT BLOOD,URINE NEGATIVE (NEGATIVE); PROTEIN,URINE NEGATIVE (NEGATIVE); UROBILINOGEN,URINE 0.2 mg/dL (0.2-1.0)
[2021-05-24 21:47] LABS: BACTERIA,URINE Rare /HPF (None Seen); RBC,URINE 0-1 /HPF (0-1); SQUAMOUS EPITHELIAL CELL,UR Few /HPF (0-2); WBC,URINE 0-1 /HPF (0-1)
[2021-05-25 04:42] VITALS: BP 128/75
[2021-05-25 05:14] LABS: HEMATOCRIT 37.6 % (36-48); MEAN CORPUSCULAR HEMOGLOBIN 31.4 pg (27.0-33.0); MEAN CORPUSCULAR VOLUME 92.4 fL (79-99); RED BLOOD CELL COUNT(AUTO) 4.07 MIL/uL (4.00-5.50); RED CELL DISTRIBUTION WIDTH 11.9 % (11.0-15.5); WHITE BLOOD COUNT (AUTO) 12.7 K/uL (4.8-10.8)
[2021-05-25 05:26] LABS: CREATININE 0.9 mg/dL (0.5-1.5); MAGNESIUM 2.1 mg/dL (1.80-2.40); PHOSPHORUS 4.1 mg/dL (2.5-4.9); POTASSIUM 4.6 mmol/L (3.5-5.1)
[2021-05-25] MEDS: INSULIN HUMULIN R 100 UNIT/ML 3ML SQ SCH ×2 (06:12→11:55)
[2021-05-25 07:15] VITALS: BP 126/74
[2021-05-25] MEDS ORDERED: MAGNESIUM CITRATE 296 ML SOLUTION PO SCH (08:00)
[2021-05-25] MEDS: LORATADINE/PSEUDOEPHED 5/120 MG 1 EACH TAB.SR.12H PO SCH (08:14)
[2021-05-25] MEDS: HYDROCHLOROTHIAZIDE 25 MG TABLET PO SCH (08:15)
[2021-05-25] MEDS: PANTOPRAZOLE 40 MG TAB DR PO SCH (08:15)
[2021-05-25] MEDS: LACTULOSE 20 GM/30 ML UDCUP PO SCH (08:27)
[2021-05-25] MEDS: PREDNISONE 20 MG TABLET PO SCH (08:28)
[2021-05-25] MEDS: HYDROCODONE/ACETAMINOPHEN 5/325 MG TAB PO PRN (08:30)
[2021-05-25] MEDS ORDERED: POLYETHYLENE GLYCOL 3350 17 GM POWD.PACK PO SCH (09:00)
[2021-05-25] MEDS ORDERED: CYCLOBENZAPRINE HCL 10 MG TABLET PO SCH (09:00)
[2021-05-25 11:20] VITALS: BP 119/71
== END 2021-05-25 17:45 ==
LOC: EDH 09:48 → EDHIP 16:28 → 3BH 20:46
PROVIDERS: ADMIT Internal Medicine Critical Care Medicine; ATTEND Internal Medicine Critical Care Medicine
DX: M48.07 Spinal stenosis, lumbosacral region (principal); Z20.822 Contact with and (suspected) exposure to COVID-19; M54.17 Radiculopathy, lumbosacral region; E87.6 Hypokalemia; E11.9 Type 2 diabetes mellitus without complications; I10 Essential (primary) hypertension; K59.00 Constipation, unspecified; F41.9 Anxiety disorder, unspecified; E66.9 Obesity, unspecified; I25.10 Atherosclerotic heart disease of native coronary artery without angina pectoris; Z90.710 Acquired absence of both cervix and uterus; Z88.0 Allergy status to penicillin; Z79.82 Long term (current) use of aspirin; Z79.4 Long term (current) use of insulin
CPT/HCPCS: 36415 ×4; 72131; 72148; 80048 ×3; 80053; 81001; 82948 ×11; 83735 ×3; 84100 ×2; 85025 ×3; 85027; 85730; 87635; 96365; 96366; 96372; 96375 ×3; 97116 ×2; 97161; 99284; C9803; G0378 ×72; J1170 ×2; J1650; J1815 ×10; J2405; J2930; J3475

== ENCOUNTER 2022-01-16 09:00 | Observation (INO) | payer MEDICARE ==
[~2022-01-16] VITALS: Ht 154.9 cm; Wt 68.9 kg
[~2022-01-16 09:00] MED LIST changes: -ACET1TAB25 PO; +ALPR1TAB7 PO; -CEPH500B PO; +FAMO40TA7 PO; +HYDR25TA PO; +INSU100I24 SQ; +LACT10SO5 PO; -MIRT-93 PO; +MIRT45TA83 PO
[2022-01-16 10:53] LABS: BASOPHILS % (AUTO) 0.5 % (0.0-5.0); EOSINOPHILS % (AUTO) 1.2 % (0.0-8.0); HEMATOCRIT 37.1 % (36-48); LYMPHOCYTES % (AUTO) 23.8 % (21.0-51.0); MEAN CORPUSCULAR HEMOGLOBIN 31.2 pg (27.0-33.0); MEAN CORPUSCULAR HGB CONC 33.2 g/dL (32.0-36.0); MEAN CORPUSCULAR VOLUME 94.2 fL (79-99); MONOCYTES % (AUTO) 5.1 % (3.0-13.0); PLATELET COUNT (AUTO) 268 K/uL (130-400); RED BLOOD CELL COUNT(AUTO) 3.94 MIL/uL (4.00-5.50); RED CELL DISTRIBUTION WIDTH 12.1 % (11.0-15.5); WHITE BLOOD COUNT (AUTO) 10.8 K/uL (4.8-10.8)
[2022-01-16 11:00] LABS: POTASSIUM 3.2 mmol/L (3.5-5.1)
[2022-01-16] MEDS ORDERED: CLINDAMYCIN IVPB 900MG/50ML 50 ML IV SCH (12:30)
[2022-01-16 13:09] VITALS: BP 132/68
[2022-01-16] MEDS ORDERED: LORA10TA7 PO (13:56)
[2022-01-16] MEDS ORDERED: DICY20TA3 PO (13:59)
[2022-01-16] MEDS ORDERED: PREG75 PO (13:59)
[2022-01-17] VITALS (25 sets, daily range): BP systolic 98–132; BP diastolic 52–76
[2022-01-17] MEDS ORDERED: BUPIVACAINE/EPI/PF 0.25% 10ML VIAL IJ ONE (05:05)
[2022-01-17] MEDS ORDERED: CEFAZOLIN SODIUM 1 GM VIAL ONE (05:05)
[2022-01-17] MEDS ORDERED: BUPIVACAINE/EPI/PF 0.5% 30ML VIAL IJ ONE (05:06)
[2022-01-17] MEDS ORDERED: MORPHINE PF 100MG/10ML AMP IV ONE (05:06)
[2022-01-17] MEDS ORDERED: THROMBIN-JMI 5000 UNIT/VIAL TP ONE (05:07)
[2022-01-17] MEDS ORDERED: DEXMEDETOMIDINE HCL 200 MCG/2 ML VIAL IV ONE (05:29)
[2022-01-17] MEDS ORDERED: 0.9%NACL 1000ML 1,000 ML IV ONE (06:23)
[2022-01-17 06:32] LABS: POTASSIUM 3.2 mmol/L (3.5-5.1)
[2022-01-17] MEDS ORDERED: ONDANSETRON 4MG INJ ONE (07:13)
[2022-01-17] MEDS ORDERED: PROPOFOL 10 MG/ML 20ML VIAL IV ONE ×2 (07:13→10:16)
[2022-01-17] MEDS ORDERED: MIDAZOLAM HCL 1 MG/ML 2ML VIAL ONE (07:13)
[2022-01-17] MEDS ORDERED: SUCCINYLCHOLINE CHLORIDE 20 MG/ML 10 ML VIAL ONE (07:13)
[2022-01-17] MEDS ORDERED: ROCURONIUM 10MG/1ML SYR 10 MG/ML ML ONE ×2 (07:13→08:42)
[2022-01-17] MEDS ORDERED: FENTANYL CITRATE PF 50 MCG/1 ML 5ML AMP IV ONE (07:14)
[2022-01-17] MEDS ORDERED: THROMBIN-JMI 20000 UNIT KIT TP ONE (08:00)
[2022-01-17] MEDS ORDERED: DEXAMETHASONE SOD PHOSPHATE 4 MG/ML 1ML VIAL ONE (08:40)
[2022-01-17] MEDS ORDERED: PHENYLEPHRINE HCL 10 MG/ML 1ML VIAL IV ONE (08:41)
[2022-01-17] MEDS ORDERED: GLYCOPYRROLATE 1 MG/5 ML SYRINGE ONE ×2 (08:42→10:12)
[2022-01-17] MEDS ORDERED: NEOSTIGMINE 5MG/5ML SYR IV ONE (10:12)
[2022-01-17] MEDS: CLINDAMYCIN IVPB 900MG/50ML 50 ML IV SCH ×2 (10:30→18:34)
[2022-01-17] MEDS ORDERED: 0.9%NACL 10ML VIAL IVP PRN (10:30)
[2022-01-17] MEDS ORDERED: DICYCLOMINE HCL 20 MG TAB PO PRN (10:30)
[2022-01-17] MEDS ORDERED: PROMETHAZINE HCL 25 MG/ML 1ML AMPULE IM PRN (10:30)
[2022-01-17] MEDS ORDERED: MORPHINE 2 MG SYG IVP PRN (10:30)
[2022-01-17] MEDS ORDERED: HYDROCODONE/ACETAMINOPHEN 5/325 MG TAB PO PRN (10:30)
[2022-01-17] MEDS ORDERED: LACTATED RINGERS 1000ML 1,000 ML IV SCH (10:30)
[2022-01-17] MEDS: DEXAMETHASONE SOD PHOSPHATE 4 MG/ML 1ML VIAL IVP SCH ×3 (10:30→20:31)
[2022-01-17] MEDS: ALPRAZOLAM 1 MG TAB PO SCH ×2 (13:53→21:03)
[2022-01-17] MEDS: PREGABALIN 75 MG CAPSULE PO SCH ×2 (13:53→20:31)
[2022-01-17] MEDS ORDERED: PHARMACY COMMUNICATION MISC SCH (15:30)
[2022-01-17] MEDS: KETOROLAC 15MG/ML VIAL (15MG/ML) IV PRN (16:47)
[2022-01-17] MEDS ORDERED: POTASSIUM CHLORIDE 20MEQ/100ML 100 ML IV PRN (18:30)
[2022-01-17] MEDS ORDERED: LIDOCAINE HCL-MPF 1% 2ML VIAL IV PRN (18:30)
[2022-01-17] MEDS ORDERED: POTASSIUM CHLORIDE 10% ELIXIR 20 MEQ/15 ML UDCUP PO PRN (18:30)
[2022-01-17] MEDS ORDERED: DEXTROSE 50%-WATER 50 ML DISP.SYRIN IV PRN (19:30)
[2022-01-17] MEDS ORDERED: GLUCAGON 1MG KIT 1 MG ML IM PRN (19:30)
[2022-01-17] MEDS: KCL 20 MEQ ERTAB PO PRN ×2 (20:32→23:49)
[2022-01-17] MEDS ORDERED: MIRTAZAPINE 15 MG TABLET PO SCH (21:00)
[2022-01-17] MEDS ORDERED: FAMOTIDINE 20MG TAB PO SCH (21:00)
[2022-01-18] MEDS: DEXAMETHASONE SOD PHOSPHATE 4 MG/ML 1ML VIAL IVP SCH (04:38)
[2022-01-18] MEDS: KCL 20 MEQ ERTAB PO PRN ×2 (04:38→09:00)
[2022-01-18 04:45] VITALS: BP 109/61
[2022-01-18] MEDS: KETOROLAC 15MG/ML VIAL (15MG/ML) IV PRN (04:49)
[2022-01-18 08:00] VITALS: BP 118/67
[2022-01-18] MEDS: ALPRAZOLAM 1 MG TAB PO SCH (08:58)
[2022-01-18] MEDS ORDERED: TRESIBA U SQ SCH (09:00)
[2022-01-18] MEDS ORDERED: LACTULOSE 20 GM/30 ML UDCUP PO SCH (09:00)
[2022-01-18] MEDS: PREGABALIN 75 MG CAPSULE PO SCH (09:00)
[2022-01-18] MEDS ORDERED: PANTOPRAZOLE 40 MG TAB DR PO SCH (09:00)
[2022-01-18] MEDS ORDERED: LORATADINE 10 MG TABLET PO SCH (09:00)
[2022-01-18] MEDS ORDERED: ASPIRIN 81 MG EC TAB PO SCH (09:00)
[2022-01-18] MEDS ORDERED: HYDROCHLOROTHIAZIDE 25 MG TABLET PO SCH (09:00)
== END 2022-01-18 10:10 | disposition home or self-care (01) ==
LOC: DAHIP 01-17 05:40 → 4CH 01-17 11:20
PROVIDERS: ADMIT Neurological Surgery; ATTEND Neurological Surgery
DX: M48.07 Spinal stenosis, lumbosacral region (principal); Z20.822 Contact with and (suspected) exposure to COVID-19; I10 Essential (primary) hypertension; E78.5 Hyperlipidemia, unspecified; E11.9 Type 2 diabetes mellitus without complications; K21.9 Gastro-esophageal reflux disease without esophagitis; M54.10 Radiculopathy, site unspecified; I87.8 Other specified disorders of veins; Z79.899 Other long term (current) drug therapy; Z90.710 Acquired absence of both cervix and uterus
CPT/HCPCS: 80051 ×2; 85025; 87426; 36415 ×2; 71045; 63047; 63048 ×2; 96376 ×2; 96365; 96375; 82948 ×2; 72020; G0378 ×23; A4510; A4663; J7120 ×2; A4344; J3010; J0690; J3490 ×7; J2710; J0330; J7030; J2250; J2704 ×2; J2274; J2405; J1100 ×5; J1885 ×2; J2370; A4649 ×2; A4215; A4223; A4222; A4221; A4600

== ENCOUNTER 2022-02-25 05:16 | Emergency (ER) | payer MEDICARE ==
[~2022-02-25] VITALS: Ht 165.1 cm; Wt 68.9 kg
[~2022-02-25 05:16] MED LIST changes: +DICY20TA3 PO; +LORA10TA7 PO; +PREG75 PO
[2022-02-25 09:42] VITALS: BP 125/64
== END 2022-02-25 09:43 | disposition home or self-care (01) ==
LOC: EDH 05:16
DX: S39.012A Strain of muscle, fascia and tendon of lower back, initial encounter (principal); S00.83XA Contusion of other part of head, initial encounter; S10.83XA Contusion of other specified part of neck, initial encounter; S80.02XA Contusion of left knee, initial encounter; S80.01XA Contusion of right knee, initial encounter; E11.9 Type 2 diabetes mellitus without complications; I10 Essential (primary) hypertension; Z90.710 Acquired absence of both cervix and uterus; Z79.4 Long term (current) use of insulin; Z79.82 Long term (current) use of aspirin; Z88.0 Allergy status to penicillin; Z88.1 Allergy status to other antibiotic agents; Z88.2 Allergy status to sulfonamides; W18.39XA Other fall on same level, initial encounter; Y93.89 Activity, other specified; Y92.091 Bathroom in other non-institutional residence as the place of occurrence of the external cause; Y99.8 Other external cause status
CPT/HCPCS: 70450; 72100; 72125; 73562

== ENCOUNTER 2023-02-13 05:39 | Observation (INO) | payer MEDICARE ==
[2023-02-09 13:45] LABS: BASOPHILS # (AUTO) 0.04 K/uL (0.00-0.20); BASOPHILS % (AUTO) 0.4 % (0.0-5.0); HEMATOCRIT 36.3 % (36-48); IMMATURE GRANULOCYTE ABSOLUTE 0.03 K/uL (0-1); LYMPHOCYTES # (AUTO) 2.1 K/uL (1.0-4.8); LYMPHOCYTES % (AUTO) 21.3 % (21.0-51.0); MEAN CORPUSCULAR HEMOGLOBIN 30.4 pg (27.0-33.0); MEAN CORPUSCULAR HGB CONC 32.5 g/dL (32.0-36.0); MEAN CORPUSCULAR VOLUME 93.6 fL (79-99); MONOCYTES # (AUTO) 0.6 K/uL (0.1-1.0); MONOCYTES % (AUTO) 5.7 % (3.0-13.0); NEUTROPHILS % (AUTO) 71.3 % (40.0-77.0); PLATELET COUNT (AUTO) 340 K/uL (130-400); RED BLOOD CELL COUNT(AUTO) 3.88 MIL/uL (4.00-5.50); RED CELL DISTRIBUTION WIDTH 12.5 % (11.0-15.5); WHITE BLOOD COUNT (AUTO) 9.9 K/uL (4.8-10.8)
[2023-02-09 14:00] LABS: CREATININE 0.9 mg/dL (0.5-1.5); POTASSIUM 3.6 mmol/L (3.5-5.1)
[2023-02-09 14:15] LABS: INR 0.94 (0.85-1.15); PROTHROMBIN TIME 10.9 SEC (9.6-11.6)
[2023-02-09 14:16] LABS: PARTIAL THROMBOPLASTIN TIME 28.2 SEC (26.3-35.5)
[2023-02-09 14:41] VITALS: BP 135/75; PULSE 89; RESP 19
[~2023-02-13] VITALS: Ht 149.9 cm; Wt 69.0 kg
[2023-02-13] VITALS (26 sets, daily range): BP systolic 115–148; BP diastolic 61–81; PULSE 58–87; RESP 11–18; O2SAT 95–96
[2023-02-13] MEDS: CEFAZOLIN SODIUM 2 GM VIAL ONE ×2 (06:23→07:49)
[2023-02-13] MEDS ORDERED: 0.9%NACL 1000ML 1,000 ML IV ONE (06:23)
[2023-02-13] MEDS ORDERED: FAMOTIDINE 20MG VIAL IV ONE (06:54)
[2023-02-13] MEDS ORDERED: HYDROMORPHONE 1 MG INJ ONE (06:54)
[2023-02-13] MEDS ORDERED: TRANEXAMIC ACID 1000MG/10ML ONE (06:59)
[2023-02-13] MEDS ORDERED: ROPIVACAINE 0.5% 5MG/ML 30ML IJ ONE (06:59)
[2023-02-13] MEDS ORDERED: ROCURONIUM 10MG/1ML SYR 10 MG/ML ML ONE (07:00)
[2023-02-13] MEDS ORDERED: FENTANYL CITRATE PF 50 MCG/1 ML 2ML VIAL ONE ×2 (07:00→08:08)
[2023-02-13] MEDS ORDERED: GLYCOPYRROLATE 1 MG/5 ML SYRINGE ONE (07:00)
[2023-02-13] MEDS ORDERED: PROPOFOL 10 MG/ML 20ML VIAL IV ONE ×2 (07:00→09:15)
[2023-02-13] MEDS ORDERED: LIDOCAINE PF 100MG/5ML (2%) SYRINGE 5ML ONE (07:00)
[2023-02-13] MEDS ORDERED: MIDAZOLAM HCL 1 MG/ML 2ML VIAL ONE (07:15)
[2023-02-13] MEDS ORDERED: ONDANSETRON 4MG INJ IVP PRN (08:00)
[2023-02-13] MEDS ORDERED: KCL 20 MEQ ERTAB PO PRN (08:00)
[2023-02-13] MEDS ORDERED: POTASSIUM CHLORIDE 10% ELIXIR 20 MEQ/15 ML UDCUP PO PRN (08:00)
[2023-02-13] MEDS ORDERED: MORPHINE 4 MG SYG IVP PRN (08:00)
[2023-02-13] MEDS ORDERED: ACETAMINOPHEN 1,000 MG/100 ML VIAL IV SCH (08:00)
[2023-02-13] MEDS: 0.9%NACL 1000ML 1,000 ML IV SCH ×2 (08:00→11:15)
[2023-02-13] MEDS ORDERED: POTASSIUM CHLORIDE 20MEQ/100ML 100 ML IV PRN (08:00)
[2023-02-13] MEDS ORDERED: HYDROCODONE/ACETAMINOPHEN 5/325 MG TAB PO PRN (08:00)
[2023-02-13] MEDS ORDERED: ONDANSETRON 4MG INJ ONE ×2 (08:21→10:02)
[2023-02-13] MEDS: POLYETHYLENE GLYCOL 3350 17 GM POWD.PACK PO SCH (09:00)
[2023-02-13] MEDS: INSULIN DEGLUDEC 10 UNIT SQ SCH (09:00)
[2023-02-13] MEDS: ASPIRIN 81 MG EC TAB PO SCH ×2 (09:00→20:43)
[2023-02-13] MEDS: HYDROCHLOROTHIAZIDE 25 MG TABLET PO SCH (09:00)
[2023-02-13] MEDS ORDERED: PANTOPRAZOLE 40 MG TAB DR PO SCH (09:00)
[2023-02-13] MEDS: LACTULOSE 20 GM/30 ML UDCUP PO SCH (09:00)
[2023-02-13] MEDS: PREGABALIN 75 MG CAPSULE PO SCH ×3 (09:00→20:43)
[2023-02-13] MEDS ORDERED: NEOSTIGMINE 5MG/5ML SYR IV ONE (09:01)
[2023-02-13] MEDS ORDERED: ACETAMINOPHEN 1,000 MG/100 ML VIAL IV ONE (09:58)
[2023-02-13] MEDS ORDERED: MEPERIDINE-PF 25 MG/ML SYG ONE (10:01)
[2023-02-13] MEDS ORDERED: IBUPROFEN 800MG + NS 250ML IV SCH (11:00)
[2023-02-13] MEDS: CALDOLOR 800MG+NS 250ML 250 ML IV SCH ×2 (11:15→18:37)
[2023-02-13] MEDS: INSULIN HUMULIN R 100 UNIT/ML 3ML SQ SCH ×3 (11:30→20:44)
[2023-02-13] MEDS ORDERED: CEFAZOLIN SODIUM 1 GM VIAL IVPB SCH (13:00)
[2023-02-13] MEDS: HYDROCODONE/ACETAMINOPHEN 10/325 MG TAB PO PRN (13:18)
[2023-02-13] MEDS: CEFAZOLIN SODIUM 2 GM VIAL IVPB SCH ×2 (13:18→20:44)
[2023-02-13] MEDS: ACETAMINOPHEN 1,000 MG/100 ML VIAL IV SCH ×2 (16:13→21:43)
[2023-02-13] MEDS ORDERED: SERT-439 PO (18:56)
[2023-02-13] MEDS ORDERED: SERTRALINE HCL 50 MG TABLET PO ONE (20:00)
[2023-02-13] MEDS: FAMOTIDINE 20MG TAB PO SCH (20:43)
[2023-02-13] MEDS: ALPRAZOLAM 1 MG TAB PO PRN (20:43)
[2023-02-13] MEDS: MIRTAZAPINE 15 MG TABLET PO SCH (20:43)
[2023-02-14] VITALS (9 sets, daily range): BP systolic 108–154; BP diastolic 54–83; PULSE 82–111; RESP 18–20; O2SAT 97–100
[2023-02-14] MEDS: HYDROCODONE/ACETAMINOPHEN 10/325 MG TAB PO PRN ×4 (00:33→22:33)
[2023-02-14] MEDS: CALDOLOR 800MG+NS 250ML 250 ML IV SCH (02:38)
[2023-02-14] MEDS: 0.9%NACL 1000ML 1,000 ML IV SCH (02:41)
[2023-02-14 04:24] LABS: HEMATOCRIT 29.6 % (36-48); MEAN CORPUSCULAR HGB CONC 33.1 g/dL (32.0-36.0); MEAN CORPUSCULAR VOLUME 93.7 fL (79-99); RED BLOOD CELL COUNT(AUTO) 3.16 MIL/uL (4.00-5.50); RED CELL DISTRIBUTION WIDTH 12.6 % (11.0-15.5); WHITE BLOOD COUNT (AUTO) 10.4 K/uL (4.8-10.8)
[2023-02-14 04:34] LABS: CREATININE 0.8 mg/dL (0.5-1.5); POTASSIUM 3.6 mmol/L (3.5-5.1)
[2023-02-14] MEDS: INSULIN HUMULIN R 100 UNIT/ML 3ML SQ SCH ×4 (05:36→20:18)
[2023-02-14] MEDS: HYDROCHLOROTHIAZIDE 25 MG TABLET PO SCH (08:36)
[2023-02-14] MEDS: ASPIRIN 81 MG EC TAB PO SCH ×2 (08:36→20:16)
[2023-02-14] MEDS: PREGABALIN 75 MG CAPSULE PO SCH ×3 (08:36→20:16)
[2023-02-14] MEDS: LACTULOSE 20 GM/30 ML UDCUP PO SCH (08:39)
[2023-02-14] MEDS: ALPRAZOLAM 1 MG TAB PO PRN (08:47)
[2023-02-14] MEDS: INSULIN DEGLUDEC 10 UNIT SQ SCH (08:49)
[2023-02-14] MEDS: POLYETHYLENE GLYCOL 3350 17 GM POWD.PACK PO SCH (08:55)
[2023-02-14] MEDS ORDERED: SERTRALINE HCL 50 MG TABLET PO SCH (17:00)
[2023-02-14] MEDS: MIRTAZAPINE 15 MG TABLET PO SCH (20:16)
[2023-02-14] MEDS: FAMOTIDINE 20MG TAB PO SCH (20:16)
[2023-02-15 04:22] VITALS: BP 115/57; PULSE 100; RESP 18
[2023-02-15] MEDS: INSULIN HUMULIN R 100 UNIT/ML 3ML SQ SCH ×2 (05:10→11:46)
[2023-02-15] MEDS: HYDROCODONE/ACETAMINOPHEN 10/325 MG TAB PO PRN ×2 (06:31→10:23)
[2023-02-15 07:40] VITALS: O2SAT 95
[2023-02-15 07:55] VITALS: BP 127/59; PULSE 97; RESP 17
[2023-02-15] MEDS: HYDROCHLOROTHIAZIDE 25 MG TABLET PO SCH (08:48)
[2023-02-15] MEDS: ASPIRIN 81 MG EC TAB PO SCH (08:48)
[2023-02-15] MEDS: LACTULOSE 20 GM/30 ML UDCUP PO SCH (08:48)
[2023-02-15] MEDS: PREGABALIN 75 MG CAPSULE PO SCH ×2 (08:51→13:55)
[2023-02-15] MEDS: INSULIN DEGLUDEC 10 UNIT SQ SCH (08:52)
[2023-02-15] MEDS: POLYETHYLENE GLYCOL 3350 17 GM POWD.PACK PO SCH (08:53)
[2023-02-15] MEDS: ALPRAZOLAM 1 MG TAB PO PRN ×2 (08:57→15:09)
[2023-02-15 11:04] VITALS: BP 116/58; PULSE 96; RESP 16
[2023-02-16] MEDS ORDERED: BISACODYL 10 MG SUPP.RECT RC PRN (08:00)
== END 2023-02-15 15:35 ==
LOC: DAH 05:39 → DAHIP 05:40 → INTOOBSV 05:40 → 4BH 10:50
PROVIDERS: ADMIT Orthopaedic Surgery; ATTEND Orthopaedic Surgery
DX: M17.11 Unilateral primary osteoarthritis, right knee (principal); E11.9 Type 2 diabetes mellitus without complications; M25.561 Pain in right knee; Z91.81 History of falling; Z79.899 Other long term (current) drug therapy
CPT/HCPCS: 80048 ×2; 85025; 85610; 85730; 36415 ×2; 93005; 87641; 27447; 96365; 96366 ×2; 96367 ×2; 82948 ×10; 97161; 97530 ×9; 85027; 97116 ×4; C1713; C1776 ×3; A4663; J7030 ×2; J7120; J3490 ×3; J3010 ×2; J1170; J2710; J2001; J2250; J2704 ×2; J2405 ×2; J2175; J2795; J1741 ×3; J0690 ×3; A6223; G0168; A4649 ×2; A6212; A5120; A4215 ×2; A4223; A4222; A4221; G0378 ×27; J1815 ×2

== ENCOUNTER → 2023-05-29 | Outpatient (CLI) | payer MEDICARE ==
[~2023-05-29] MED LIST changes: -FAMO40TA7 PO; +SERT-439 PO
== END | disposition home or self-care (01) ==
LOC: RAH 07:44
PROVIDERS: ATTEND Physician Assistant Medical
DX: K21.9 Gastro-esophageal reflux disease without esophagitis (principal); R11.0 Nausea; R10.10 Upper abdominal pain, unspecified
CPT/HCPCS: 74240

== ENCOUNTER 2023-12-02 08:06 | Inpatient (IN) | payer MEDICARE ==
[2023-12-02] VITALS (10 sets, daily range): BP systolic 134–155; BP diastolic 70–77; PULSE 59–76; RESP 18–20; TEMP 98.2–99; O2SAT 97–99
[~2023-12-02] VITALS: Ht 154.9 cm; Wt 75.3 kg
[2023-12-02 08:46] LABS: BASOPHILS # (AUTO) 0.01 K/uL (0.00-0.20); BASOPHILS % (AUTO) 0.1 % (0.0-5.0); HEMATOCRIT 27.9 % (36-48); IMMATURE GRANULOCYTE ABSOLUTE 0.04 K/uL (0-1); LYMPHOCYTES # (AUTO) 0.4 K/uL (1.0-4.8); LYMPHOCYTES % (AUTO) 5.2 % (21.0-51.0); MEAN CORPUSCULAR HEMOGLOBIN 28.6 pg (27.0-33.0); MEAN CORPUSCULAR VOLUME 86.6 fL (79-99); MONOCYTES # (AUTO) 0.5 K/uL (0.1-1.0); MONOCYTES % (AUTO) 5.7 % (3.0-13.0); NEUTROPHILS % (AUTO) 88.5 % (40.0-77.0); PLATELET COUNT (AUTO) 224 K/uL (130-400); RED BLOOD CELL COUNT(AUTO) 3.22 MIL/uL (4.00-5.50); RED CELL DISTRIBUTION WIDTH 14.5 % (11.0-15.5); WHITE BLOOD COUNT (AUTO) 7.9 K/uL (4.8-10.8)
[2023-12-02 08:59] LABS: CREATININE 1.6 mg/dL (0.5-1.0); POTASSIUM 3.3 mmol/L (3.5-5.1)
[2023-12-02 09:00] LABS: INR 0.95 (0.85-1.15); PROTHROMBIN TIME 10.3 SEC (9.6-11.6)
[2023-12-02 09:01] LABS: PARTIAL THROMBOPLASTIN TIME 33.2 SEC (26.3-35.5)
[2023-12-02 09:21] LABS: ALBUMIN 2.8 g/dL (3.5-5.0); BILIRUBIN,DIRECT 0.2 mg/dL (0.0-0.3); BILIRUBIN,TOTAL 0.5 mg/dL (0.2-1.0); TOTAL PROTEIN, SERUM 6.7 g/dL (6.0-8.3)
[2023-12-02] MEDS: IpraTROPium/alBUTERol SULFATE 3 ML SOLUTION IH ONE (09:26)
[2023-12-02] MEDS: dexaMETHasone SOD PHOSPHATE 4 MG/ML 1ML VIAL IVP ONE (09:28)
[2023-12-02] MEDS: CEFTRIAXONE 2GM VIAL IVPB ONE (09:28)
[2023-12-02] MEDS: acetaMINOPHEN 325 MG TAB PO ONE (09:29)
[2023-12-02 09:31] LABS: INFLUENZA TYPE A Negative For Type A (NEGATIVE); INFLUENZA TYPE B Negative For Type B (NEGATIVE)
[2023-12-02 09:32] LABS: B-TYPE NATRIURETIC PEPTIDE 127 pg/mL (0-100)
[2023-12-02 09:54] LABS: SARS-CoV-2, RNA, NAAT POSITIVE SARS CoV-2 (NEGATIVE)
[2023-12-02 10:25] LABS: ADD UA MICROSCOPIC YES; APPEARANCE,URINE CLEAR (CLEAR); BILIRUBIN,URINE NEGATIVE (NEGATIVE); COLOR,URINE LIGHT-YELLOW (YELLOW); GLUCOSE, URINE (UA) TRACE mg/dL (NEGATIVE); KETONES,URINE NEGATIVE (NEGATIVE); LEUKOCYTE ESTERASE ,URINE NEGATIVE Leu/uL (NEGATIVE); NITRATE,URINE NEGATIVE (NEGATIVE); OCCULT BLOOD,URINE MODERATE (NEGATIVE); PH,URINE 5.5 (5.0-8.0); PROTEIN,URINE 20 mg/dL (NEGATIVE); UROBILINOGEN,URINE 0.2 mg/dL (0.2-1.0)
[2023-12-02 10:28] LABS: RBC,URINE 0-1 /HPF (0-1); SQUAMOUS EPITHELIAL CELL,UR RARE /HPF (0-2); WBC,URINE 0-1 /HPF (0-1)
[2023-12-02] MEDS ORDERED: acetaMINOPHEN 325 MG TAB PO PRN (11:00)
[2023-12-02] MEDS ORDERED: hydrALAZine 20MG/ML VIAL IV PRN (11:00)
[2023-12-02] MEDS ORDERED: cloNIDine HCL 0.1 MG TABLET PO PRN (11:00)
[2023-12-02] MEDS ORDERED: acetaMINOPHEN 650 MG SUPPOSITORY RC PRN (11:00)
[2023-12-02] MEDS: DOXYCYCLINE 100MG+NS 250ML IV SCH (11:23)
[2023-12-02] MEDS: LACTATED RINGERS 1000ML 1,000 ML IV SCH (11:26)
[2023-12-02] MEDS ORDERED: CELE-125 PO (13:14)
[2023-12-02] MEDS ORDERED: FAMO40TA7 PO (13:14)
[2023-12-02] MEDS ORDERED: CEFD300C3 PO (13:14)
[2023-12-02] MEDS ORDERED: INSU3INS3 SQ (13:14)
[2023-12-02] MEDS ORDERED: TRIM100T PO (13:14)
[2023-12-02] MEDS ORDERED: METO5TAB2 PO (13:14)
[2023-12-02] MEDS ORDERED: TRAM50TA4 PO (13:14)
[2023-12-02] MEDS ORDERED: GLUCAGON 1MG KIT 1 MG ML IM PRN (16:00)
[2023-12-02] MEDS ORDERED: PoTASSium chl 10% ELIXIR 20MEQ 20 MEQ/15 ML UDCUP PO PRN (16:00)
[2023-12-02] MEDS ORDERED: DEXTROSE 50%-WATER 50 ML DISP.SYRIN IV PRN (16:00)
[2023-12-02 16:26] LABS: DEVICE COMMENT VEN
[2023-12-02 16:28] LABS: ABG OXYGEN SATURATION 61.1 % (94.0-98.0); PCO2,VENOUS BLOOD GAS 42 (38-54); PH,VENOUS BLOOD GAS 7.389 (7.320-7.430)
[2023-12-02 16:30] LABS: HCO3,VENOUS BLOOD GAS 24.7 (22.0-29.0); PO2,VENOUS BLOOD GAS 28.2 mmHg (23.0-48.0)
[2023-12-02] MEDS ORDERED: DICYCLOMINE HCL 20 MG TAB PO PRN (16:30)
[2023-12-02] MEDS ORDERED: furoSEMIDE 20 MG TABLET PO SCH (16:30)
[2023-12-02 16:31] LABS: BASE EXCESS,VENOUS BLOOD GAS -0.3 (-2.0-3.0); VENT MODE, BG VENOUS (ROOM AIR)
[2023-12-02] MEDS: PoTASSium chloRIDE 20MEQ ER 20 MEQ ERTAB PO PRN (17:27)
[2023-12-02] MEDS: ZOSYN 3.375GM +NS 50ML IV SCH (17:27)
[2023-12-02] MEDS: SERTraline HCL 50 MG TABLET PO SCH (17:27)
[2023-12-02] MEDS: INSULIN humuLIN R 100 UNIT/ML 3ML SQ SCH (17:39)
[2023-12-02] MEDS: INSULIN GLARgine 100 UNITS/ML 10 ML VIAL SQ ONE (17:40)
[2023-12-02] MEDS: SODIUM CHLORIDE 3% FOR INHALATION 4 ML/AMP VIAL.NEB IH ONE (18:24)
[2023-12-02] MEDS: IpraTROPium 0.5 MG/2.5 ML INH IH PRN (18:27)
[2023-12-02] MEDS: mirtAZAPine 15 MG TABLET PO SCH (20:06)
[2023-12-02] MEDS: ALPRAZolam 1 MG TAB PO SCH (20:23)
[2023-12-02] MEDS ORDERED: ALPRAZolam 1 MG TAB PO SCH (21:00)
[2023-12-03] VITALS (56 sets, daily range): BP systolic 141–189; BP diastolic 58–108; PULSE 45–105; RESP 13–27; TEMP 98–98.9; O2SAT 94–97
[2023-12-03 04:15] LABS: HEMATOCRIT 29.6 % (36-48); IMMATURE GRANULOCYTE ABSOLUTE 0.07 K/uL (0-1); LYMPHOCYTES # (AUTO) 0.7 K/uL (1.0-4.8); LYMPHOCYTES % (AUTO) 9.7 % (21.0-51.0); MEAN CORPUSCULAR HEMOGLOBIN 28.1 pg (27.0-33.0); MEAN CORPUSCULAR HGB CONC 32.1 g/dL (32.0-36.0); MEAN CORPUSCULAR VOLUME 87.6 fL (79-99); MONOCYTES # (AUTO) 0.3 K/uL (0.1-1.0); MONOCYTES % (AUTO) 4.5 % (3.0-13.0); NEUTROPHILS # (AUTO) 5.7 K/uL (1.8-7.7); NEUTROPHILS % (AUTO) 84.8 % (40.0-77.0); PLATELET COUNT (AUTO) 228 K/uL (130-400); RED BLOOD CELL COUNT(AUTO) 3.38 MIL/uL (4.00-5.50); RED CELL DISTRIBUTION WIDTH 14.5 % (11.0-15.5); WHITE BLOOD COUNT (AUTO) 6.7 K/uL (4.8-10.8)
[2023-12-03 04:45] LABS: B-TYPE NATRIURETIC PEPTIDE 343 pg/mL (0-100)
[2023-12-03 04:48] LABS: ABG OXYGEN SATURATION 42.3 % (94.0-98.0); DEVICE COMMENT VENOUS; HCO3,VENOUS BLOOD GAS 24.1 (22.0-29.0); PCO2,VENOUS BLOOD GAS 42 (38-54); PO2,VENOUS BLOOD GAS 24.3 mmHg (23.0-48.0); VENT MODE, BG RA (ROOM AIR)
[2023-12-03 04:52] LABS: CREATININE 1.2 mg/dL (0.5-1.0); MAGNESIUM 1.9 mg/dL (1.80-2.40); PHOSPHORUS 2.4 mg/dL (2.5-4.9); POTASSIUM 4.2 mmol/L (3.5-5.1)
[2023-12-03 05:22] LABS: ABG HCO3 22.3 mmol/L (21.0-28.0); ABG OXYGEN SATURATION 96.7 % (94.0-98.0); ABG PCO2 33 mmHg (32-45); ABG PH 7.442 (7.350-7.450); DEVICE COMMENT RR; PO2, ARTERIAL BG 84.1 mmHg (83.0-108.0); VENT MODE, BG NC 2L (ROOM AIR)
[2023-12-03] MEDS ORDERED: IpraTROPium 0.5 MG/2.5 ML INH IH PRN (05:30)
[2023-12-03] MEDS: ASPIRIN 81 MG EC TAB PO SCH (08:17)
[2023-12-03] MEDS: hydrALAZine HCL 10 MG TABLET PO SCH (08:17)
[2023-12-03] MEDS: LORATAdine 10 mg 10 MG TABLET PO SCH (08:18)
[2023-12-03] MEDS: ENOXAPARIN SODIUM 40 MG/0.4 ML SYRINGE SQ SCH (08:18)
[2023-12-03] MEDS: dexaMETHasone SOD PHOSPHATE 10MG/ML 1ML VIAL IVP SCH (08:18)
[2023-12-03] MEDS: ALPRAZolam 0.5 MG TABLET PO SCH (08:18)
[2023-12-03] MEDS: hydroCHLOROthiazide 25 MG TABLET PO SCH (08:18)
[2023-12-03] MEDS: PANTOPrazole 40 MG TAB DR PO SCH (08:18)
[2023-12-03] MEDS: INSULIN GLARgine 100 UNITS/ML 10 ML VIAL SQ SCH ×2 (08:30→20:44)
[2023-12-03] MEDS: LACTULOSE 20 GM/30 ML UDCUP PO SCH (09:00)
[2023-12-03] MEDS ORDERED: CEFTRIAXONE 2GM VIAL IVPB SCH (10:00)
[2023-12-03] MEDS: BUDESONIDE 0.5 MG/2 ML INH IH SCH (10:00)
[2023-12-03] MEDS: monteLUKAST sodIUM 10 MG TAB PO ONE (10:37)
[2023-12-03] MEDS: IpraTROPium 0.5 MG/2.5 ML INH IH SCH (11:32)
[2023-12-03] MEDS: furoSEMIDE 40MG VIAL IV STA (11:40)
[2023-12-03] MEDS: ALPRAZolam 1 MG TAB PO SCH (14:21)
[2023-12-03 15:23] LABS: ABG BASE EXCESS 4.1 mmol/L (-2.0-3.0); ABG HCO3 26.6 mmol/L (21.0-28.0); ABG OXYGEN SATURATION 94.8 % (94.0-98.0); ABG PCO2 33 mmHg (32-45); ABG PH 7.527 (7.350-7.450); CARBON MONOXIDE 0.4 % (0.5-1.5); DEVICE COMMENT LBRENE; HHb 5.2; VENT MODE, BG NC (ROOM AIR)
[2023-12-03] MEDS: furoSEMIDE 20MG VIAL IV ONE (17:27)
[2023-12-03] MEDS: dexmedeTOMIDine 400MCG/NS100ML IV SCH ×2 (17:28→20:28)
[2023-12-03] MEDS ORDERED: diazePAM 5 MG/ML 2 ML SYG IV PRN (18:30)
[2023-12-03] MEDS: MELATONIN 5 MG TABLET PO SCH (20:26)
[2023-12-04] VITALS (95 sets, daily range): BP systolic 81–157; BP diastolic 40–117; PULSE 42–128; RESP 13–33; TEMP 97.8–98.6; O2SAT 95–99
[2023-12-04 04:10] LABS: BASOPHILS # (AUTO) 0.01 K/uL (0.00-0.20); BASOPHILS % (AUTO) 0.1 % (0.0-5.0); HEMATOCRIT 33.5 % (36-48); IMMATURE GRANULOCYTE ABSOLUTE 0.09 K/uL (0-1); LYMPHOCYTES % (AUTO) 8.2 % (21.0-51.0); MEAN CORPUSCULAR HEMOGLOBIN 28.5 pg (27.0-33.0); MEAN CORPUSCULAR HGB CONC 33.1 g/dL (32.0-36.0); MEAN CORPUSCULAR VOLUME 86.1 fL (79-99); MONOCYTES # (AUTO) 0.6 K/uL (0.1-1.0); MONOCYTES % (AUTO) 4.6 % (3.0-13.0); NEUTROPHILS # (AUTO) 10.3 K/uL (1.8-7.7); NEUTROPHILS % (AUTO) 86.3 % (40.0-77.0); PLATELET COUNT (AUTO) 292 K/uL (130-400); RED BLOOD CELL COUNT(AUTO) 3.89 MIL/uL (4.00-5.50); RED CELL DISTRIBUTION WIDTH 14.2 % (11.0-15.5); WHITE BLOOD COUNT (AUTO) 11.9 K/uL (4.8-10.8)
[2023-12-04 04:34] LABS: B-TYPE NATRIURETIC PEPTIDE 346 pg/mL (0-100)
[2023-12-04 04:36] LABS: CREATININE 1.1 mg/dL (0.5-1.0); POTASSIUM 3.4 mmol/L (3.5-5.1)
[2023-12-04] MEDS ORDERED: monteLUKAST sodIUM 10 MG TAB PO SCH (09:00)
[2023-12-04] MEDS: dexaMETHasone 4 MG TAB PO SCH (09:26)
[2023-12-04] MEDS: CALCIUM CARB 500MG CHEW TAB PO PRN (18:35)
[2023-12-05] VITALS (14 sets, daily range): BP systolic 116–154; BP diastolic 62–72; PULSE 62–82; RESP 16–20; TEMP 98.2–98.7; O2SAT 93–98
[2023-12-05] MEDS: ondanSETRON 4MG INJ IVP PRN (05:04)
[2023-12-05] MEDS: ALPRAZolam 1 MG TAB PO SCH (10:26)
[2023-12-05 11:07] LABS: BASOPHILS # (AUTO) 0.01 K/uL (0.00-0.20); BASOPHILS % (AUTO) 0.1 % (0.0-5.0); EOSINOPHILS # (AUTO) 0.01 K/uL (0.00-0.70); EOSINOPHILS % (AUTO) 0.1 % (0.0-8.0); HEMATOCRIT 28.2 % (36-48); IMMATURE GRANULOCYTE ABSOLUTE 0.43 K/uL (0-1); LYMPHOCYTES # (AUTO) 1.1 K/uL (1.0-4.8); LYMPHOCYTES % (AUTO) 10.3 % (21.0-51.0); MEAN CORPUSCULAR HEMOGLOBIN 28.3 pg (27.0-33.0); MEAN CORPUSCULAR HGB CONC 32.3 g/dL (32.0-36.0); MEAN CORPUSCULAR VOLUME 87.6 fL (79-99); MONOCYTES % (AUTO) 9.3 % (3.0-13.0); NEUTROPHILS # (AUTO) 8.3 K/uL (1.8-7.7); NEUTROPHILS % (AUTO) 76.3 % (40.0-77.0); PLATELET COUNT (AUTO) 264 K/uL (130-400); RED BLOOD CELL COUNT(AUTO) 3.22 MIL/uL (4.00-5.50); RED CELL DISTRIBUTION WIDTH 14.4 % (11.0-15.5); WHITE BLOOD COUNT (AUTO) 10.9 K/uL (4.8-10.8)
[2023-12-05 11:23] LABS: AMMONIA < 10 umol/L (11-32); CARBON DIOXIDE 25 mmol/L (21-32); CHLORIDE 106 mmol/L (101-111); CREATINE KINASE, TOTAL 75 U/L (21-232); GLOMERULAR FILTR. RATE CALC 58 mL/min (>90); GLUCOSE,RANDOM 142 mg/dL (70-105); SODIUM SERUM 139 mmol/L (136-145); UREA NITROGEN, BLOOD 31 mg/dL (7-18)
[2023-12-05 11:25] LABS: POTASSIUM 2.6 mmol/L (3.5-5.1)
[2023-12-05 11:26] LABS: B-TYPE NATRIURETIC PEPTIDE 76 pg/mL (0-100)
[2023-12-05] MEDS: PoTASSium chloRIDE 20MEQ/100ML 100 ML IV PRN (12:29)
[2023-12-06] VITALS (11 sets, daily range): BP systolic 112–141; BP diastolic 64–74; PULSE 70–93; RESP 16–20; TEMP 98–98.6; O2SAT 92–98
[2023-12-06 05:11] LABS: BASOPHILS # (AUTO) 0.04 K/uL (0.00-0.20); BASOPHILS % (AUTO) 0.3 % (0.0-5.0); HEMATOCRIT 31.8 % (36-48); LYMPHOCYTES # (AUTO) 2.5 K/uL (1.0-4.8); LYMPHOCYTES % (AUTO) 17.3 % (21.0-51.0); MEAN CORPUSCULAR HEMOGLOBIN 27.9 pg (27.0-33.0); MEAN CORPUSCULAR HGB CONC 32.7 g/dL (32.0-36.0); MEAN CORPUSCULAR VOLUME 85.3 fL (79-99); MONOCYTES # (AUTO) 1.3 K/uL (0.1-1.0); MONOCYTES % (AUTO) 8.9 % (3.0-13.0); NEUTROPHILS # (AUTO) 9.4 K/uL (1.8-7.7); NEUTROPHILS % (AUTO) 65.8 % (40.0-77.0); PLATELET COUNT (AUTO) 317 K/uL (130-400); RED BLOOD CELL COUNT(AUTO) 3.73 MIL/uL (4.00-5.50); RED CELL DISTRIBUTION WIDTH 14.1 % (11.0-15.5); WHITE BLOOD COUNT (AUTO) 14.3 K/uL (4.8-10.8)
[2023-12-06 05:21] LABS: POTASSIUM 4.2 mmol/L (3.5-5.1)
[2023-12-06 10:27] LABS: INR 1.03 (0.85-1.15); PROTHROMBIN TIME 11.1 SEC (9.6-11.6)
[2023-12-06] MEDS ORDERED: LOPERAMIDE HCL 2 MG CAP PO PRN (14:30)
[2023-12-06] MEDS: LACTOBACILLUS RHAMNOSUS GG 1 EACH CAP.SPRINK PO SCH (18:01)
[2023-12-07] VITALS (9 sets, daily range): BP systolic 112–126; BP diastolic 65–71; PULSE 74–90; RESP 17–20; TEMP 98.4–99.3; O2SAT 93–96
[2023-12-07] MEDS: ZOSYN 3.375GM +NS 50ML IV SCH (02:56)
[2023-12-07] MEDS: INSULIN GLARgine 100 UNITS/ML 10 ML VIAL SQ SCH (09:00)
[2023-12-07] MEDS ORDERED: IPRNEB IH (11:38)
[2023-12-07] MEDS ORDERED: DEXA4 PO (11:38)
[2023-12-07] MEDS ORDERED: DOXY100C5 PO (11:38)
[2023-12-07] MEDS ORDERED: Zosyn 3.375GM+Ns 50ML IV (11:38)
[2023-12-07] MEDS ORDERED: BUDE0.5A3 IH (11:38)
[2023-12-09 16:08] LABS: C DIFFICILE TOXIN A/B Not Detected (Not Detected); ENTEROAGGREGATIVE ECOLI Not Detected (Not Detected); GIARDIA LAMBLIA Not Detected (Not Detected); PLESIOMONAS SHIGELOIDES Not Detected (Not Detected); SAPOVIRUS Not Detected (Not Detected); SHIGELLA/ENTEROINVASIVE E COLI Not Detected (Not Detected); VIBRIO Not Detected (Not Detected); VIBRIO CHOLERAE Not Detected (Not Detected)
== END 2023-12-07 18:13 | DRG 871 ==
LOC: EDH 08:06 → EDHIP 10:54 → 2AH 14:36 → 2CH 12-03 16:50 → 3CH 12-04 16:21
PROVIDERS: ADMIT Internal Medicine; ATTEND Internal Medicine
PROC: 05HY33Z Insertion of Infusion Device into Upper Vein, Percutaneous Approach (ICD-10-PCS; principal; 2023-12-07)
DX: A41.89 Other specified sepsis (principal); G93.41 Metabolic encephalopathy; J12.82 Pneumonia due to coronavirus disease 2019; U07.1 COVID-19; J96.01 Acute respiratory failure with hypoxia; N17.9 Acute kidney failure, unspecified; M62.82 Rhabdomyolysis; E11.65 Type 2 diabetes mellitus with hyperglycemia; F32.A Depression, unspecified; K21.9 Gastro-esophageal reflux disease without esophagitis; N18.30 Chronic kidney disease, stage 3 unspecified; E87.6 Hypokalemia; E88.09 Other disorders of plasma-protein metabolism, not elsewhere classified; M54.50 Low back pain, unspecified; E66.9 Obesity, unspecified; F41.1 Generalized anxiety disorder; I25.10 Atherosclerotic heart disease of native coronary artery without angina pectoris; D63.1 Anemia in chronic kidney disease; G89.29 Other chronic pain; E78.5 Hyperlipidemia, unspecified; Z66 Do not resuscitate; I13.10 Hypertensive heart and chronic kidney disease without heart failure, with stage 1 through stage 4 chronic kidney disease, or unspecified chronic kidney disease; E11.22 Type 2 diabetes mellitus with diabetic chronic kidney disease; Z83.3 Family history of diabetes mellitus; Z82.49 Family history of ischemic heart disease and other diseases of the circulatory system; Z79.4 Long term (current) use of insulin; Z90.710 Acquired absence of both cervix and uterus; Z96.651 Presence of right artificial knee joint; Z88.2 Allergy status to sulfonamides; Z68.31 Body mass index [BMI] 31.0-31.9, adult; Z88.1 Allergy status to other antibiotic agents; Z88.8 Allergy status to other drugs, medicaments and biological substances; Z79.899 Other long term (current) drug therapy
CPT/HCPCS: 36415; 36569; 36600; 70450; 70551; 71045; 71250; 72192; 74018; 74230; 80048; 80076; 81001; 82140; 82435; 82550; 82803; 82947; 82948; 83540; 83550; 83605; 83630; 83735; 83880; 84100; 84132; 84145; 84295; 84484; 85018; 85025; 85378; 85610; 85730; 87040; 87071; 87205; 87507; 87635; 87804; 92611; 93005; 93306; 93356; 93970; 94640; 94664; 96365; 96375; C1894; G0378; J0696; J1100; J1650; J1815; J1940; J2405; J2543; J3480; J3490; J7120; J8540; C1750

== ENCOUNTER → 2024-02-14 | Outpatient (CLI) | payer MEDICARE ==
[~2024-02-14] MED LIST changes: +BUDE0.5A3 IH; +DEXA4 PO; +DOXY100C5 PO; -HYDR25TA PO; +INSU3INS3 SQ; +IPRNEB IH; -LACT10SO5 PO; +Zosyn 3.375GM+Ns 50ML IV
== END | disposition home or self-care (01) ==
LOC: RAH 13:14
PROVIDERS: ATTEND Family Medicine
DX: Z12.31 Encounter for screening mammogram for malignant neoplasm of breast (principal)
CPT/HCPCS: 77067

== ENCOUNTER → 2025-03-05 | Outpatient (CLI) | payer MEDICARE | END | disposition home or self-care (01) | LOC: RAH 11:09 | PROVIDERS: ATTEND Family Medicine | DX: Z12.31 Encounter for screening mammogram for malignant neoplasm of breast (principal) | CPT/HCPCS: 77067 ==